=== PATIENT | male | born 1975 | race African-American/Black ===

== ENCOUNTER 2017-11-20 14:47 | Emergency (ER) | payer OTHER ==
[2017-11-20 17:28] VITALS: BP 152/81
== END 2017-11-20 17:20 | disposition home or self-care (01) ==
LOC: ED 14:47
DX: S29.012A Strain of muscle and tendon of back wall of thorax, initial encounter (principal); V49.9XXA Car occupant (driver) (passenger) injured in unspecified traffic accident, initial encounter; Y93.89 Activity, other specified; Y99.8 Other external cause status; Y92.89 Other specified places as the place of occurrence of the external cause
CPT/HCPCS: 72072

== ENCOUNTER 2017-11-24 12:10 | Emergency (ER) | payer OTHER ==
[~2017-11-24] VITALS: Ht 188 cm; Wt 116.6 kg
[2017-11-24 12:11] VITALS: Ht 188 cm; Wt 116.6 kg
[2017-11-24 14:41] VITALS: BP 145/87
== END 2017-11-24 14:41 | disposition home or self-care (01) ==
LOC: ED 12:10
DX: M54.6 Pain in thoracic spine (principal); M54.5 Low back pain; I10 Essential (primary) hypertension; Z86.73 Personal history of transient ischemic attack (TIA), and cerebral infarction without residual deficits; V89.2XXA Person injured in unspecified motor-vehicle accident, traffic, initial encounter; Y93.19 Activity, other involving water and watercraft; Y92.488 Other paved roadways as the place of occurrence of the external cause; Y99.8 Other external cause status
CPT/HCPCS: J1885

== ENCOUNTER 2018-06-29 19:31 | Emergency (ER) | payer OTHER ==
[~2018-06-29] VITALS: Ht 188 cm; Wt 117.5 kg
[2018-06-29 19:38] VITALS: Ht 188 cm; Wt 117.5 kg
[2018-06-29 23:19] VITALS: BP 169/98
== END 2018-06-29 23:19 | disposition home or self-care (01) ==
LOC: ED 19:31
DX: I10 Essential (primary) hypertension (principal); Z86.73 Personal history of transient ischemic attack (TIA), and cerebral infarction without residual deficits
CPT/HCPCS: J0780; J1200; J1885; J3490; J7030